=== PATIENT | female | born 1965 | race Caucasian/White ===

== ENCOUNTER 2020-08-20 12:23 | Inpatient (IN) | payer OTHER ==
[~2020-08-20] VITALS: Ht 175.3 cm; Wt 49.5 kg
[~2020-08-20 12:23] MED LIST: FERR27TA2 PO; PANT40T PO; POTA1TAB61 PO; PROP60CA34 PO
[2020-08-20] MEDS ORDERED: NITROGLYCERIN 0.4 MG SL TAB SL PRN ×2 (15:15→17:00)
[2020-08-20] MEDS ORDERED: MORPHINE SULF INJ 2 MG/ML SYRINGE 1ML IV PRN ×3 (15:15→17:00)
[2020-08-20] MEDS ORDERED: NAPR220C PO (16:03)
[2020-08-20] MEDS ORDERED: PROP80CA40 PO (16:03)
[2020-08-20] MEDS ORDERED: OLOP0.2S5 OP (16:04)
[2020-08-20] MEDS ORDERED: DOCUSATE SOD 100 MG CAP PO PRN (17:00)
[2020-08-20] MEDS ORDERED: ACETAMINOPHEN 325 MG TAB PO PRN (17:00)
[2020-08-20] MEDS ORDERED: HYDROcodone-ACET 5/325MG TAB PO PRN (17:00)
[2020-08-20] MEDS ORDERED: ALUM & MAG HYDROX-SIMETH LIQ(MAALOX) 30 ML PO PRN (17:00)
[2020-08-20] MEDS ORDERED: PANTOPRAZOLE 40 MG/10 ML VIAL INJ IV ONE (17:00)
[2020-08-20] MEDS ORDERED: ONDANSETRON HCL 4 MG/2 ML VIAL IV PRN (17:00)
[2020-08-20] MEDS ORDERED: LORazepam 0.5 MG TAB PO PRN (17:00)
[2020-08-20] MEDS ORDERED: cefTRIAXone 1GM/50ML D5W 50 ML IV ONE (18:00)
[2020-08-20 20:24] VITALS: BP 115/73
--- NOTE | 2020-08-20 20:24 | NUR ---
Telemetry admit from [facility] admitted to Telemetry unit after NO SBAR received. Patient oriented to Coy romero RN, unit, room, bed, and unit policies regarding patient care and visiting hours. Patient now on continuous telemetry monitoring, tele box # 25 and telemetry reading on arrival to unit is sinus rhythm. Patient placed on bedside oxygen, weighed by bedscale and encouraged to call if they need something. All questions and concerns addressed, patient verbalized understanding. Addendum: 08/21/20 at 0211 by Coy Barnhart RN Telemetry admit from [facility] admitted to Telemetry unit after NO SBAR received. Patient oriented to Coy romero RN, central unit, 217 room, A bed, and unit policies regarding patient care and visiting hours. Patient now on continuous telemetry monitoring, tele box # 25 and telemetry reading on arrival to unit is sinus rhythm. Patient placed on bedside oxygen, weighed by bedscale and encouraged to call if they need something. All questions and concerns addressed, patient verbalized understanding.
--- NOTE | 2020-08-20 21:00 | NUR ---
A completed belonging list is in physical chart. completed by ER.
--- NOTE | 2020-08-20 21:28 | NUR ---
Called lab to follow up with lab orders to be drawn. Sapho said he will send someone to draw patient.
[2020-08-20] MEDS: PROPRANOLOL HCL 20 MG TAB PO SCH (21:34)
--- NOTE | 2020-08-20 22:00 | NUR ---
Pictures taken of skin conditions. wound picture forms filled out and placed in wound care nurse box.
[2020-08-20 22:25] LABS: Basophils # (auto) 0 10 ^3/uL (0-0.2); Eosinophils # (auto) 0.1 10 ^3/uL (0-0.8); Lymphocytes # (auto) 0.5 10 ^3/uL (0.4-5.4); Mean Corpuscular Hgb Conc. 29.8 g/dL (32.0-36.0); Monocytes # (auto) 0.3 10 ^3/uL (0-1.3); Neutrophils # (auto) 1.9 10 ^3/uL (1.6-8.6); Platelet Count (auto) 109 10^3/uL (140-450); White Blood Cell 2.8 10^3/uL (4.4-10.8)
[2020-08-20 22:26] LABS: Basophils % (auto) 0.6 % (0.0-2.0); Eosinophils % (auto) 2.2 % (0.0-7.0); Hematocrit 23.3 % (36.0-46.0); Lymphocytes % (auto) 17.1 % (10.0-50.0); Mean Corpuscular Hemoglobin 21.7 pg (28.0-32.0); Monocytes % (auto) 11.2 % (0.0-12.0); Neutrophils % (auto) 68.9 % (37.0-80.0)
[2020-08-20 22:27] VITALS: BP 115/73
[2020-08-20 22:40] LABS: Chloride 109 mmol/L (98-107); Cholesterol 102 mg/dL (< 200); HDL Cholesterol 32 mg/dL (40-59); LDL Cholesterol 64 mg/dL (< 100); Sodium 141 mmol/L (136-145); Triglycerides 78 mg/dL (< 150)
[2020-08-20 22:42] LABS: Red Cell Distribution Width 22.5 % (11.8-14.3)
--- NOTE | 2020-08-20 22:48 | NUR ---
Mine hospitalist to notify of critical value hemoglobin 7.0 and hematocrit 23.3. no signs of bleeding. Michelle from lab notified me of critical h&h at 2245 Addendum: 08/20/20 at 225 by Coy Barnhart RN recyclable materials distributor ayleen notified critical potassium 2.8 at 225. mine hospitalist again.
[2020-08-20 22:51] LABS: Alanine Aminotransferase 17 U/L (13-56); Albumin 2.8 g/dL (3.4-5.0); Alkaline Phosphatase 105 U/L (45-117); Anion Gap 8 (5-15); Aspartate Aminotransferase 32 U/L (15-37); BUN/Creatinine Ratio 11.9; Blood Urea Nitrogen 5 mg/dL (7-18); Calcium 7.5 mg/dL (8.5-10.1); Carbon Dioxide 24 mmol/L (21-32); GFR African American 201 mL/min; GFR Non-African American 166 mL/min; Glucose 100 mg/dL (74-106); Lipase 103 U/L (73-393); Total Protein 5.9 g/dL (6.4-8.2)
[2020-08-20 22:54] LABS: Potassium 2.8 mmol/L (3.5-5.1)
[2020-08-20 23:02] LABS: Urine Bacteria FEW /hpf (None Seen); Urine Blood TRACE /uL (Negative); Urine Mucus FEW (None Seen); Urine Specific Gravity 1.035 (1.001-1.035); Urine WBC 22 /hpf (0 - 5)
--- NOTE | 2020-08-20 23:05 | NUR ---
CRITICAL LAB PAGED HOSPITALIST REGARDING CRITICAL HGB AND POTASSIUM
--- NOTE | 2020-08-20 23:07 | NUR ---
Hospitalist made aware of critical hemoglobin 7.0 and hematocrit 23.3 and critical potassium 2.8. No new orders received for critical hemoglobin. Hospitalist Waqas provided new order: potassium 40meq po one time dose. order for potassium placed by Waqas hospitalist. Will carry out. patient has no active signs of bleeding.
[2020-08-20] MEDS ORDERED: POTASSIUM CHL 20 Meq TABLET PO ONE (23:15)
[2020-08-21] VITALS (8 sets, daily range): BP systolic 90–117; BP diastolic 56–77
[2020-08-21 00:35] LABS: Amphetamine Screen, Urine NEGATIVE (NEGATIVE); Barbiturate Scree,Urine NEGATIVE (NEGATIVE); Benzodiazephine Screen, Urine NEGATIVE (NEGATIVE); Cannabinoid Screen, Urine POSITIVE (NEGATIVE); Cocaine Screen, Urine NEGATIVE (NEGATIVE); Opiate Scree,Urine POSITIVE (NEGATIVE); Phencyclidine Screen, Urine NEGATIVE (NEGATIVE)
[2020-08-21 06:04] LABS: Basophils # (auto) 0 10 ^3/uL (0-0.2); Eosinophils # (auto) 0.1 10 ^3/uL (0-0.8); Hemoglobin 7.1 g/dL (12.2-16.2); Lymphocytes # (auto) 0.4 10 ^3/uL (0.4-5.4); Monocytes # (auto) 0.3 10 ^3/uL (0-1.3); Neutrophils # (auto) 1.4 10 ^3/uL (1.6-8.6)
[2020-08-21 06:07] LABS: Basophils % (auto) 0.5 % (0.0-2.0); Hematocrit 24.2 % (36.0-46.0); Mean Corpuscular Hemoglobin 21.5 pg (28.0-32.0); Mean Corpuscular Hgb Conc. 29.2 g/dL (32.0-36.0); Mean Corpuscular Volume 73.9 fL (80.0-100.0); Monocytes % (auto) 11.8 % (0.0-12.0); Neutrophils % (auto) 66.7 % (37.0-80.0); Nucleated Red Blood Cells % 0.2 %; Platelet Count (auto) 99 10^3/uL (140-450); Red Blood Cells 3.28 10^6/uL (4.0-5.20); White Blood Cell 2.2 10^3/uL (4.4-10.8)
[2020-08-21 06:20] LABS: Chloride 110 mmol/L (98-107); Potassium 3.4 mmol/L (3.5-5.1); Sodium 140 mmol/L (136-145)
[2020-08-21 06:27] LABS: Alanine Aminotransferase 16 U/L (13-56); Albumin 2.5 g/dL (3.4-5.0); Alkaline Phosphatase 91 U/L (45-117); Anion Gap 6 (5-15); Aspartate Aminotransferase 30 U/L (15-37); BUN/Creatinine Ratio 16.1; Bilirubin, Total 1.1 mg/dL (0.2-1.0); Blood Urea Nitrogen 5 mg/dL (7-18); Calcium 7.4 mg/dL (8.5-10.1); Carbon Dioxide 24 mmol/L (21-32); Cholesterol 94 mg/dL (< 200); GFR African American 285 mL/min; GFR Non-African American 236 mL/min; Glucose 82 mg/dL (74-106); HDL Cholesterol 26 mg/dL (40-59); INR 1.31 (0.9-1.15); LDL Cholesterol 62 mg/dL (< 100); Lipase 71 U/L (73-393); Magnesium 1.1 mg/dL (1.6-2.6); Partial Thromboplastin Time 29.3 sec (23.0-31.2); Phosphorus 3.4 mg/dL (2.5-4.90); Total Protein 5.4 g/dL (6.4-8.2); Triglycerides 84 mg/dL (< 150)
[2020-08-21 06:49] LABS: Red Cell Distribution Width 22.5 % (11.8-14.3)
--- NOTE | 2020-08-21 07:22 | NUR ---
provided report to day rn. patient is resting in bed with no signs of distress. notified rn of patient critical hemoglobin and potassium last night, also notified rn of patient having elevation in ammonia level lab value.
--- NOTE | 2020-08-21 08:48 | NUR ---
gave me the order for a paracentesis for patient. Order entered
[2020-08-21] MEDS: SPIRONOLACTONE 25 MG TAB PO SCH (10:00)
[2020-08-21] MEDS: PROPRANOLOL HCL 20 MG TAB PO SCH ×2 (10:02→21:52)
[2020-08-21] MEDS: THIAMINE HCL 100 MG TAB PO SCH (10:02)
[2020-08-21] MEDS: FOLIC ACID 1 MG TAB PO SCH (10:03)
[2020-08-21] MEDS: PANTOPRAZOLE 40 MG/10 ML VIAL INJ IV SCH (10:03)
--- NOTE | 2020-08-21 14:27 | NUR ---
Nutrition Assessment/consult Notes Please see attached link for complete assessment Est energy needs Ibw 65 [id number] kcal (25-30 kcal/kg IBW), Est protein needs 65-78g (1.0-1.2g/kg IBW) Will reassess prn Addendum: 08/21/20 at [address] Amended: Links added.
--- NOTE | 2020-08-21 15:00 | NUR ---
PARACENTESIS PATIENT BROUGHT TO [facility] PER . PARACENTESIS COMPLETED PER DR JOHNSON UNDER LOCAL ANESTHETIC - 2700 ML STRAW COLORED LIQ OBTAINED - PATIENT TOLERATED FAIRLY WELL WITH ENCOURAGEMENT GIVEN. SEE VS SPREADSHEET FOR VS. LARGE BANDAID APPLIED TO RT LOWER ABD - NO BLEEDING NOTED.
--- NOTE | 2020-08-21 15:30 | NUR ---
PATIENT RETURNED TO ROOM PER WC - REPORT CALLED TO MARIA ELENA SANCHEZ. CONDITION APPEARS STABLE FOR TRANSFER BACK TO ROOM.
--- NOTE | 2020-08-21 15:30 | NUR ---
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
--- NOTE | 2020-08-21 15:50 | NUR ---
ASCITES FLUID TAKEN TO LAB FOR ORDERED TESTING.
--- NOTE | 2020-08-21 19:00 | NUR ---
Opening Shift Note Assumed care of patient, awake and alert x4. Bed locked in low position, call light within reach, Fall safety precaution education given. No S/S of distress/SOB or pain. Instructed on POC and to call for assist PRN, will continue to monitor for changes Q1hr and PRN.
--- NOTE | 2020-08-21 19:00 | NUR ---
Opening Shift Note Assumed care of patient, awake and alertx4. Educate about fall safety precaution. bed low in locked position, call light within reach, non skid socks in place. No S/S of distress/SOB or pain. Insructed on POC and to call for assist PRN, Patient agreed and verbalized understanding. will continue to monitor for changes Q1hr and PRN.
[2020-08-21] MEDS ORDERED: cefTRIAXone 1GM/50ML D5W 50 ML IV SCH (22:00)
--- NOTE | 2020-08-21 22:00 | NUR ---
IV removal IV DC'd with clean sterile technique, catheter fully intact. Pressure dressing applied to site. Patient tolerated well. NOTE:
--- NOTE | 2020-08-21 22:30 | NUR ---
IV insertion IV access obtained, via clean sterile technique by inserting 22 gauge catheter at Right Forearm after 1 attempt. IV secured properly. No trauma to site. Patient tolerated well. NOTE:
[2020-08-22 05:00] VITALS: BP 111/69
[2020-08-22 06:47] LABS: Basophils # (auto) 0 10 ^3/uL (0-0.2); Eosinophils # (auto) 0.1 10 ^3/uL (0-0.8); Hemoglobin 7.1 g/dL (12.2-16.2); Lymphocytes # (auto) 0.4 10 ^3/uL (0.4-5.4); Monocytes # (auto) 0.2 10 ^3/uL (0-1.3)
[2020-08-22 06:50] LABS: Basophils % (auto) 0.7 % (0.0-2.0); Eosinophils % (auto) 2.7 % (0.0-7.0); Hematocrit 24.5 % (36.0-46.0); Lymphocytes % (auto) 19.1 % (10.0-50.0); Mean Corpuscular Hemoglobin 21.4 pg (28.0-32.0); Mean Corpuscular Hgb Conc. 28.9 g/dL (32.0-36.0); Mean Corpuscular Volume 74.1 fL (80.0-100.0); Monocytes % (auto) 12.2 % (0.0-12.0); Neutrophils # (auto) 1.3 10 ^3/uL (1.6-8.6); Neutrophils % (auto) 65.3 % (37.0-80.0); Nucleated Red Blood Cells % 0.1 %; Platelet Count (auto) 102 10^3/uL (140-450); Red Blood Cells 3.31 10^6/uL (4.0-5.20)
--- NOTE | 2020-08-22 06:51 | NUR ---
Closing Shift Report Patient asleep right now. No SOB and no acute distress seen. bed in low locked position, call light within reach, non skid socks on. Fall precaution observed.
[2020-08-22 06:58] LABS: Red Cell Distribution Width 22.7 % (11.8-14.3)
[2020-08-22 07:08] LABS: Potassium 3.2 mmol/L (3.5-5.1)
[2020-08-22 07:24] LABS: BUN/Creatinine Ratio 6.1; Calcium 7.8 mg/dL (8.5-10.1)
[2020-08-22 09:00] VITALS: BP 94/63
[2020-08-22] MEDS ORDERED: POTASSIUM CHL 20 Meq TABLET PO ONE (09:30)
[2020-08-22] MEDS: PANTOPRAZOLE 40 MG/10 ML VIAL INJ IV SCH (09:46)
[2020-08-22] MEDS: MAGNESIUM SULFATE 1GM/100ML 100 ML IV SCH ×2 (09:46→11:04)
[2020-08-22] MEDS: FOLIC ACID 1 MG TAB PO SCH (09:47)
[2020-08-22] MEDS: THIAMINE HCL 100 MG TAB PO SCH (09:47)
[2020-08-22] MEDS: SPIRONOLACTONE 25 MG TAB PO SCH (09:48)
[2020-08-22] MEDS: PROPRANOLOL HCL 20 MG TAB PO SCH (09:48)
--- NOTE | 2020-08-22 09:52 | NUR ---
D/C planning Per social service consult for home health safety evaluation and resources for alcohol cessation. faxed clinical information to [facility]. Per Jenny with [facility] patient has been accepted and service to start within 24-48hrs upon d/c day. Resources will be placed on patient charge.
--- NOTE | 2020-08-22 11:17 | NUR ---
NOTIFIED DR PAIGE OF POTASSIUM 3.2, MAG 1.1. NEW ORDERS RECEIVED AND CARRIED OUT.
[2020-08-22] MEDS ORDERED: THIA50CA PO (11:40)
[2020-08-22] MEDS ORDERED: LEVO500T21 PO (11:40)
[2020-08-22] MEDS ORDERED: FOLI1TAB6 PO (11:40)
[2020-08-22] MEDS ORDERED: METR500T PO (11:40)
[2020-08-22] MEDS ORDERED: SPIR25TA88 PO (11:40)
[2020-08-22 13:00] VITALS: BP 94/72
[2020-08-22 13:47] VITALS: BP 94/72
--- NOTE | 2020-08-22 14:12 | NUR ---
assessment Patient is a 55 year old female who is alert and oriented. Patients cognitive abilities are intact. Prior to admission patient lived home with her and functioned independently. Patient informed me she is able to care for her own ADLs. Per patient she will return home to her prior living arrangements post discharge and family will transport her home. Patient has no need for DME. Patients PCP is Dr Connolly. Patient agrees to Home health safety. Patient feels safe returning home on discharge. Patient has no other post discharge needs identified. I informed patient she has a right to speak to a social work assistant regarding all care. I informed patient she has a right to participate in any and all discharge planning. Patient does not have a POA and advanced directive. I have offered patient information on POA and advanced directives. I informed the patient the advantages and benefits of having an Advanced Directive. Patient verbalized understanding and agreed to discharge plan. Addendum: 08/22/20 at 1414 by Amarilis TEMPLE Amended: Links added.
== END 2020-08-22 14:52 | disposition home health service (06) | DRG 432 ==
LOC: EDUNIT# 12:23 → ER 12:23 → EDBD 12:23 → TELE 12:24 → TELE-CENTR 20:24
PROVIDERS: ADMIT Hospitalist; ATTEND Hospitalist
PROC: 0W9G30Z Drainage of Peritoneal Cavity with Drainage Device, Percutaneous Approach (ICD-10-PCS; principal; 2020-08-21)
DX: K70.31 Alcoholic cirrhosis of liver with ascites (principal); K65.2 Spontaneous bacterial peritonitis; K76.6 Portal hypertension; N39.0 Urinary tract infection, site not specified; D61.818 Other pancytopenia; D68.9 Coagulation defect, unspecified; F10.239 Alcohol dependence with withdrawal, unspecified; K52.9 Noninfective gastroenteritis and colitis, unspecified; F12.90 Cannabis use, unspecified, uncomplicated; F17.210 Nicotine dependence, cigarettes, uncomplicated; I10 Essential (primary) hypertension; K31.89 Other diseases of stomach and duodenum; Z82.49 Family history of ischemic heart disease and other diseases of the circulatory system; Z85.43 Personal history of malignant neoplasm of ovary; Z90.710 Acquired absence of both cervix and uterus
CPT/HCPCS: 10022; 36415; 71045; 74176; 76700; 76942; 80048; 80053; 80061; 80307; 81001; 82140; 83036; 83690; 83735; 83880; 84100; 84443; 84484; 85025; 85045; 85610; 85730; 87040; 87086; 87205; 89051; 96365; 96375; C9113; G0378; J0696

== ENCOUNTER 2021-07-10 16:55 | Emergency (ER) | payer OTHER ==
[~2021-07-10] VITALS: Ht 162.6 cm; Wt 54.4 kg
[2021-07-10 16:55] VITALS: BP 110/65
[~2021-07-10 16:55] MED LIST changes: -FERR27TA2 PO; +FOLI1TAB6 PO; +LEVO500T31 PO; +METR500T PO; +OLOP0.2S5 OP; -POTA1TAB61 PO; -PROP60CA34 PO; +PROP80CA40 PO; +SPIR25TA PO; +THIA50CA PO
== END 2021-07-10 18:13 | disposition left against medical advice (07) ==
LOC: ER 16:55 → EDBD 16:55 → ER 18:13
DX: R45.851 Suicidal ideations (principal); F32.9 Major depressive disorder, single episode, unspecified; Z90.710 Acquired absence of both cervix and uterus; Z79.2 Long term (current) use of antibiotics; Z79.899 Other long term (current) drug therapy
CPT/HCPCS: 36415; 80320; 80329

== ENCOUNTER 2022-07-22 20:13 | Emergency (ER) | payer OTHER ==
[~2022-07-22] VITALS: Ht 152.4 cm; Wt 55.0 kg
[~2022-07-22 20:13] MED LIST changes: +OLOP0.2S14 OP; -OLOP0.2S5 OP
[2022-07-23 02:14] VITALS: BP 144/83
== END 2022-07-23 02:07 | disposition home or self-care (01) ==
LOC: ER 20:13 → EDBD 20:13 → ER 07-23 02:07
DX: S00.81XA Abrasion of other part of head, initial encounter (principal); K74.60 Unspecified cirrhosis of liver; Z90.710 Acquired absence of both cervix and uterus; Z79.899 Other long term (current) drug therapy; W18.39XA Other fall on same level, initial encounter; Y93.89 Activity, other specified; Y92.89 Other specified places as the place of occurrence of the external cause; Y99.8 Other external cause status
CPT/HCPCS: 71250; 74176